=== PATIENT | female | born 1965 | race Two or more races ===

== ENCOUNTER 2021-01-13 09:17 | Outpatient (REF) | payer BC, SELFPAY ==
[2021-01-13 11:21] LABS: Cholesterol 295 mg/dL; HDL Cholesterol 53 mg/dL; LDL Cholesterol Calculated 217 mg/dl; Triglycerides 128 mg/dL
[2021-01-13 11:42] LABS: TSH reflex Free T4 5.03 uIU/mL (0.32-4.0)
== END 2021-01-13 09:18 | disposition home or self-care (01) ==
LOC: HO.HMGCLDS 09:17
PROVIDERS: PCP Internal Medicine; Visit Provider Internal Medicine
DX: E03.9 Hypothyroidism, unspecified (principal); E78.5 Hyperlipidemia, unspecified
CPT/HCPCS: 36415; 80061; 84439; 84443

== ENCOUNTER 2021-03-10 07:44 | Outpatient (REF) | payer BC, SELFPAY ==
[2021-03-10 11:27] LABS: Cholesterol 170 mg/dL; HDL Cholesterol 50 mg/dL; LDL Cholesterol Calculated 106 mg/dl; Triglycerides 74 mg/dL
[2021-03-10 11:48] LABS: TSH reflex Free T4 1.34 uIU/mL (0.32-4.0)
== END 2021-03-10 07:45 | disposition home or self-care (01) ==
LOC: HO.HMGCLDS 07:44
PROVIDERS: PCP Internal Medicine; Visit Provider Internal Medicine
DX: E03.9 Hypothyroidism, unspecified (principal); E78.5 Hyperlipidemia, unspecified
CPT/HCPCS: 36415; 80061; 84443

== ENCOUNTER 2021-10-13 07:45 | Outpatient (REF) | payer BC, SELFPAY ==
[2021-10-13 11:39] LABS: Alanine Aminotransferase 66 U/L (0-31); Albumin Level 4.3 g/dL (3.5-5.0); Alkaline Phosphatase 101 U/L (39-117); Anion Gap 13 (12-20); Aspartate Amino Transferase 37 U/L (5-31); Bilirubin Total 0.8 mg/dL (0.0-1.0); Blood Urea Nitrogen 15 mg/dL (9-16); Calcium 9.5 mg/dL (8.4-10.2); Carbon Dioxide 29 mmol/L (22-29); Chloride 106 mmol/L (96-108); Cholesterol 196 mg/dL; Estimated Glomerular Filt Rate > 60; Glucose Fasting 73 mg/dL (60-99); HDL Cholesterol 44 mg/dL; LDL Cholesterol Calculated 132 mg/dl; Potassium 4.6 mmol/L (3.3-5.1); Sodium 143 mmol/L (135-145); Total Protein 7.5 g/dL (6.5-8.0); Triglycerides 100 mg/dL
[2021-10-13 12:02] LABS: TSH reflex Free T4 26.89 uIU/mL (0.32-4.0)
[2021-10-13 12:52] LABS: Free T4 (Free Thyroxine) 0.86 ng/dL (0.71-1.85)
== END 2021-10-13 07:46 | disposition home or self-care (01) ==
LOC: HO.HMGCLDS 07:45
PROVIDERS: PCP Internal Medicine; Visit Provider Internal Medicine
DX: E03.9 Hypothyroidism, unspecified (principal); E78.5 Hyperlipidemia, unspecified; I10 Essential (primary) hypertension
CPT/HCPCS: 36415; 80053; 80061; 84439; 84443

== ENCOUNTER 2021-12-14 10:36 | Outpatient (REF) | payer BC, SELFPAY ==
[2021-12-14 14:15] LABS: TSH reflex Free T4 2.71 uIU/mL (0.32-4.0)
== END 2021-12-14 10:37 | disposition home or self-care (01) ==
LOC: HO.HMGCLDS 10:36
PROVIDERS: Visit Provider Internal Medicine
DX: E03.9 Hypothyroidism, unspecified (principal)
CPT/HCPCS: 36415; 84443

== ENCOUNTER 2022-03-02 08:29 | Outpatient (REF) | payer BC, SELFPAY ==
[2022-03-02 11:33] LABS: MANUAL DIFF FLAG NO
[2022-03-02 11:37] LABS: Basophils Absolute Auto 0.1 X10*3/uL (0.0-0.2); Basophils Percent Auto 1.4 % (0-2); Eosinophils Absolute Auto 0.2 X10*3/uL (0.0-0.4); Eosinophils Percent Auto 3.9 % (0-4); Hematocrit 45.5 % (37.0-47.0); Hemoglobin 14.9 g/dl (12.0-16.0); Imm Gran Abs Auto 0.01 X10*3/uL (0.00-0.03); Imm Gran Pct Auto 0.2 % (0.0-0.4); Lymphocytes Absolute Auto 2.4 X10*3/uL (1.2-4.9); Lymphocytes Percent Auto 49.2 % (20-40); Mean Corpuscular HGB Conc 32.7 g/dl (31.0-35.0); Mean Corpuscular Hemoglobin 28.2 pg (27.0-33.0); Mean Platelet Volume 11.7 fL (9.4-12.3); Monocytes Absolute Auto 0.5 X10*3/uL (0.1-1.2); Neutrophils Absolute Auto 1.7 x10*3/uL (2.0-8.3); Neutrophils Percent Auto 34.3 % (45-73); Platelet Count 202 X10*3/uL (160-400); Red Blood Count 5.29 X10*6/uL (4.20-5.50); Red Cell Distribution Width 11.9 % (11.0-16.0); White Blood Count 4.9 X10*3/uL (4.8-10.8)
[2022-03-02 12:37] LABS: Alanine Aminotransferase 24 U/L (0-31); Albumin Level 4.5 g/dL (3.5-5.0); Alkaline Phosphatase 70 U/L (39-117); Anion Gap 15 (12-20); Aspartate Amino Transferase 24 U/L (5-31); Bilirubin Total 0.8 mg/dL (0.0-1.0); Blood Urea Nitrogen 12 mg/dL (9-16); Calcium 9.4 mg/dL (8.4-10.2); Carbon Dioxide 27 mmol/L (22-29); Chloride 103 mmol/L (96-108); Cholesterol 332 mg/dL; Estimated Glomerular Filt Rate > 60; Glucose Fasting 78 mg/dL (60-99); HDL Cholesterol 50 mg/dL; LDL Cholesterol Calculated 260 mg/dl; Potassium 4.7 mmol/L (3.3-5.1); Sodium 140 mmol/L (135-145); Total Protein 7.4 g/dL (6.5-8.0); Triglycerides 112 mg/dL
[2022-03-02 12:39] LABS: TSH reflex Free T4 1.97 uIU/mL (0.32-4.0)
== END 2022-03-02 08:30 | disposition home or self-care (01) ==
LOC: HO.HMGCLDS 08:29
PROVIDERS: PCP Internal Medicine; Visit Provider Internal Medicine
DX: I10 Essential (primary) hypertension (principal); E78.5 Hyperlipidemia, unspecified; E03.9 Hypothyroidism, unspecified
CPT/HCPCS: 36415; 80053; 80061; 84443; 85025

== ENCOUNTER 2022-05-25 08:17 | Outpatient (REF) | payer BC, SELFPAY ==
[2022-05-25 11:24] LABS: Cholesterol 168 mg/dL; HDL Cholesterol 49 mg/dL; LDL Cholesterol Calculated 97 mg/dl; Triglycerides 113 mg/dL
== END 2022-05-25 08:18 | disposition home or self-care (01) ==
LOC: HO.HMGCLDS 08:17
PROVIDERS: PCP Internal Medicine; Visit Provider Internal Medicine
DX: E78.5 Hyperlipidemia, unspecified (principal)
CPT/HCPCS: 36415; 80061

== ENCOUNTER 2022-09-21 07:43 | Outpatient (REF) | payer BC, SELFPAY ==
[2022-09-21 11:12] LABS: MANUAL DIFF FLAG NO
[2022-09-21 11:24] LABS: Basophils Absolute Auto 0.1 X10*3/uL (0.0-0.2); Basophils Percent Auto 1.3 % (0-2); Eosinophils Absolute Auto 0.2 X10*3/uL (0.0-0.4); Eosinophils Percent Auto 3.8 % (0-4); Hematocrit 43.4 % (37.0-47.0); Imm Gran Abs Auto 0.01 X10*3/uL (0.00-0.03); Imm Gran Pct Auto 0.2 % (0.0-0.4); Lymphocytes Absolute Auto 2.2 X10*3/uL (1.2-4.9); Lymphocytes Percent Auto 38.8 % (20-40); Mean Corpuscular HGB Conc 32.3 g/dl (31.0-35.0); Mean Corpuscular Hemoglobin 27.9 pg (27.0-33.0); Mean Corpuscular Volume 86.6 fL (80.0-98.0); Monocytes Absolute Auto 0.6 X10*3/uL (0.1-1.2); Monocytes Percent Auto 11.2 % (2-11); Neutrophils Absolute Auto 2.5 x10*3/uL (2.0-8.3); Neutrophils Percent Auto 44.7 % (45-73); Platelet Count 174 X10*3/uL (160-400); Red Blood Count 5.01 X10*6/uL (4.20-5.50); Red Cell Distribution Width 11.7 % (11.0-16.0); White Blood Count 5.5 X10*3/uL (4.8-10.8)
[2022-09-21 11:53] LABS: Alanine Aminotransferase 32 U/L (0-31); Albumin Level 4.4 g/dL (3.5-5.0); Alkaline Phosphatase 63 U/L (39-117); Anion Gap 13 (12-20); Aspartate Amino Transferase 28 U/L (5-31); Bilirubin Total 1.2 mg/dL (0.0-1.0); Blood Urea Nitrogen 13 mg/dL (9-16); Calcium 9.6 mg/dL (8.4-10.2); Carbon Dioxide 28 mmol/L (22-29); Chloride 104 mmol/L (96-108); Cholesterol 148 mg/dL; Estimated Glomerular Filt Rate > 60; Glucose Fasting 85 mg/dL (60-99); HDL Cholesterol 45 mg/dL; LDL Cholesterol Calculated 80 mg/dl; Potassium 4.6 mmol/L (3.3-5.1); Sodium 140 mmol/L (135-145); Triglycerides 116 mg/dL
[2022-09-21 12:11] LABS: TSH reflex Free T4 1.67 uIU/mL (0.32-4.0); Vitamin D 25-OH Total 55.7 ng/mL (>30)
== END 2022-09-21 07:44 | disposition home or self-care (01) ==
LOC: HO.HMGCLDS 07:43
PROVIDERS: PCP Internal Medicine; Visit Provider Internal Medicine
DX: E03.9 Hypothyroidism, unspecified (principal); E78.5 Hyperlipidemia, unspecified; I10 Essential (primary) hypertension
CPT/HCPCS: 36415; 80053; 80061; 82306; 84443; 85025

== ENCOUNTER 2022-12-17 10:21 | Outpatient (AMB) | payer BC, SELFPAY ==
--- NOTE | 2022-12-17 12:33 | AM.OFFWIN_ITS ---
Intake Vital Signs 12/17/22 12:43 Height 5 ft 2 in BP 132/76 Blood Pressure Location Lt brachial Position Sitting Pulse 72 Pulse Source Pulse Oximeter Temp 97.2 F Temp Source Temporal Artery Scan Pulse Oximetry (%) 97 Oxygen Delivery Method Room Air Intake Visit Reasons: EP RT Eye concern [phone] Intake Note: Pt is here c/o possible stye in her right eye. Pt states her eye is in pain for the past three days. Patient Tobacco Use Status: Former Tobacco user Quit Date: 15 years ago Allergies atorvastatin Adverse Reaction (Intermediate, Verified 12/17/22 12:42) myalgia Do you need a note to return to daycare/school/sports/work: No HPI EP RT Eye concern [phone] HPI Details 57-year-old female presents to the office for a sick visit. Patient has a swelling in the right lower eyelid with that she would like it examined. Symptoms present for the past few days. Does not wear contact lenses. [facility] Medical History Annual physical exam Hordeolum externum (stye) HTN (hypertension) Hyperlipidemia Hypothyroidism Mammogram normal Normal colonoscopy Family History Father Asthma Mother Hypertension Stroke Social History Housing: House Patient Tobacco Use Status: Former Tobacco user Quit Date: 15 years ago e-Cigarette/Vaping Use: Never Used Current occupational status: employed Cognitive needs: No Hearing needs: No Vision needs: No Physical Exam Vital Signs: Last Vital Signs Temp 97.2 F 12/17/22 12:43 Pulse 72 12/17/22 12:43 BP 132/76 12/17/22 12:43 Pulse Ox 97 12/17/22 12:43 Oxygen Delivery Method Room Air 12/17/22 12:43 Eyes Other: Right eye: Lower eyelid: Swelling with congestion over the tarsal conjunctiva. Assessment & Plan Assessment & Plan (1) Hordeolum externum (stye): Code(s): H00.019 - Hordeolum externum unspecified eye, unspecified eyelid Plan: Erythromycin ophthalmic ointment. Warm compress. If symptoms not better to follow-up here. Coding Level of Care Code Est Pt Level 3 (19851) Diagnoses Hordeolum externum (stye) H00.019
[2022-12-17 12:43] VITALS: BP 132/76; PULSE 72; TEMP 36.2; O2SAT 97
== END 2022-12-17 13:18 | disposition home or self-care (01) ==
PROVIDERS: PCP Internal Medicine; Visit Provider Internal Medicine
DX: H00.019 Hordeolum externum unspecified eye, unspecified eyelid (principal)
CPT/HCPCS: 99213

== ENCOUNTER 2022-12-21 07:36 | Outpatient (REF) | payer BC, SELFPAY ==
[2022-12-21 11:50] LABS: Alanine Aminotransferase 31 U/L (0-31); Albumin Level 4.3 g/dL (3.5-5.0); Alkaline Phosphatase 66 U/L (39-117); Anion Gap 14 (12-20); Aspartate Amino Transferase 29 U/L (5-31); Bilirubin Total 0.7 mg/dL (0.0-1.0); Blood Urea Nitrogen 12 mg/dL (9-16); Calcium 9.2 mg/dL (8.4-10.2); Carbon Dioxide 25 mmol/L (22-29); Chloride 108 mmol/L (96-108); Cholesterol 155 mg/dL; Estimated Glomerular Filt Rate > 60; Glucose Fasting 87 mg/dL (60-99); HDL Cholesterol 50 mg/dL; LDL Cholesterol Calculated 86 mg/dl; Potassium 4.6 mmol/L (3.3-5.1); Sodium 142 mmol/L (135-145); Total Protein 7.4 g/dL (6.5-8.0); Triglycerides 99 mg/dL
== END 2022-12-21 07:37 | disposition home or self-care (01) ==
LOC: HO.HMGCLDS 07:36
PROVIDERS: PCP Internal Medicine; Visit Provider Internal Medicine
DX: E78.5 Hyperlipidemia, unspecified (principal)
CPT/HCPCS: 36415; 80053; 80061

== ENCOUNTER 2023-03-29 07:43 | Outpatient (REF) | payer BC, SELFPAY ==
[2023-03-29 12:39] LABS: Alanine Aminotransferase 28 U/L (0-31); Albumin Level 4.3 g/dL (3.5-5.0); Alkaline Phosphatase 59 U/L (39-117); Anion Gap 12 (12-20); Aspartate Amino Transferase 29 U/L (5-31); Bilirubin Total 0.6 mg/dL (0.0-1.0); Blood Urea Nitrogen 12 mg/dL (9-16); Calcium 9.5 mg/dL (8.4-10.2); Carbon Dioxide 28 mmol/L (22-29); Chloride 104 mmol/L (96-108); Cholesterol 162 mg/dL (<200); Estimated Glomerular Filt Rate > 60; Glucose Fasting 84 mg/dL (60-99); HDL Cholesterol 47 mg/dL (>40); LDL Cholesterol Calculated 99 mg/dL (<100); Potassium 4.5 mmol/L (3.3-5.1); Sodium 139 mmol/L (135-145); Total Protein 7.3 g/dL (6.5-8.0); Triglycerides 83 mg/dL (<150)
== END 2023-03-29 07:44 | disposition home or self-care (01) ==
LOC: HO.HMGCLDS 07:43
PROVIDERS: PCP Internal Medicine; Visit Provider Internal Medicine
DX: E78.5 Hyperlipidemia, unspecified (principal); E03.9 Hypothyroidism, unspecified; I10 Essential (primary) hypertension
CPT/HCPCS: 36415; 80053; 80061; 84443

== ENCOUNTER 2023-04-01 13:38 | Outpatient (AMB) | payer BC, SELFPAY ==
--- NOTE | 2023-04-01 13:41 | MHC.PC.OV ---
Vital Signs 04/01/23 13:43 Height 5 ft 2 in Weight 133 lb BMI 24.3 BP 130/80 Blood Pressure Location Rt brachial Position Sitting Pulse 94 Pulse Source Pulse Oximeter Pulse Oximetry (%) 99 Oxygen Delivery Method Room Air Intake Visit Reasons: PT Needs 2 pm PE Allergies atorvastatin Adverse Reaction (Intermediate, Verified 04/01/23 13:43) myalgia Medication List - Last Reconciled 04/01/23 by Hawa Hu MD erythromycin 0.5 inches ophthalmic (eye) TID levothyroxine 75 mcg PO DAILY lorazepam 0.5 mg PO DAILY PRN metoprolol succinate ER 25 mg PO DAILY rosuvastatin 10 mg PO DAILY valacyclovir (Valtrex) 2,000 mg (2 x 1 gram) PO BID Tobacco use date assessed: 05/29/22 Dental Screening Dental Screen Date: 04/01/23 Did you have a dental visit in the last 12 months?: Yes Did you have a dental problem in the last 6 months where you did not have access to dental care?: No Was dental information given to patient?: Patient has dentist HPI PT Needs 2 pm PE HPI Details Pt presents for PE. Pt c/o chronic rhinitis and sinus pressure on and off despite taking Flonase and Dana for years. [facility] Medical History Hordeolum externum (stye) HTN (hypertension) Normal colonoscopy Annual physical exam Hyperlipidemia Mammogram normal Hypothyroidism Family History Father Asthma Mother Hypertension Stroke Social History Housing: House Patient Tobacco Use Status: Former Tobacco user Quit Date: 15 years ago e-Cigarette/Vaping Use: Never Used Current occupational status: employed Cognitive needs: No Hearing needs: No Vision needs: No Questionnaire Thrive Questionnaire Date Thrive assessed: 05/29/22 AUDIT C Alcohol Use Questionnaire (AUDIT-C) 1. How often do you have a drink containing alcohol?: Monthly or less 2. How many drinks containing alcohol do you have on a typical day when you are drinking?: 1 or 2 3. How often do you have six or more drinks on one occasion?: Never Total Score: 1 Score Reviewed/Action Taken: No YIFAN-7 AMB Questionnaire YIFAN-7 Date YIFAN - 7 assessed: 05/29/22 Source: Developed by Drs. Boby Wang, Mecca Brown, Shaan Lopez and colleagues, with an educational carlos from [employer]. Review of Systems Const All systems reviewed & are unremarkable except as noted in HPI and below Reports no additional complaints Eyes Reports no additional complaints Card Reports no additional complaints Resp Reports no additional complaints GI Reports no additional complaints Reports no additional complaints Physical exam (Primary Care) Vital Signs: Last Vital Signs Pulse 94 04/01/23 13:43 BP 130/80 04/01/23 13:43 Pulse Ox 99 04/01/23 13:43 Oxygen Delivery Method Room Air 04/01/23 13:43 BMI result Body Mass Index 24.3 Tobacco/Smoking Status: Tobacco use Status Tobacco use date assessed 05/29/22 04/01/23 13:45 Patient Tobacco Use Status Former Tobacco user 04/01/23 13:45 e-Cigarette/Vaping Use Never Used 04/01/23 13:45 Thrive Assessment: Date of Thrive Assessment Date Thrive assessed 05/29/22 04/01/23 13:45 Const General: no acute distress HENMT Head: Yes normal to inspection Ears: hearing grossly normal bilaterally General nose exam: Abnormal mucous membranes and turbinates present erythematous and Nasal discharge present clear Face and sinus: Yes normal facial exam and No sinus tenderness Mouth: Normal oral and palatal mucosa present Throat: Yes postnasal drainage Eyes General: appearance normal, both eyes and all related structures Neck Neck: Yes no lymphadenopathy and Yes supple Resp Effort & Inspection: normal respiratory effort Auscultation: clear to auscultation bilaterally Cardio Rhythm: regular rhythm Heart sounds: S1 normal heart sound present and S2 normal heart sound present GI Inspection: Yes normal to inspection Palpation (GI): Soft to palpation Percussion: Yes normal to percussion Auscultation: normal bowel sounds Assessment and Plan Assessment & Plan (1) Hypothyroidism: Code(s): E03.9 - Hypothyroidism, unspecified Plan: cont Levothyroxine (2) Allergic rhinitis: Code(s): J30.9 - Allergic rhinitis, unspecified Plan: cont Dana and Flonase, 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 PE in 1 year Orders: Orders MM screening mammo BI Today Z12.31 - Encounter for screening mammogram for malignant neoplasm of breast TSH reflex Free T4 6 Months E03.9 - Hypothyroidism, unspecified Comprehensive [place]. Panel Fast 365 Days E03.9 - Hypothyroidism, unspecified, E78.5 - Hyperlipidemia, unspecified, Z00.00 - Encounter for general adult medical examination without abnormal findings TSH reflex Free T4 365 Days E03.9 - Hypothyroidism, unspecified, E78.5 - Hyperlipidemia, unspecified, Z00.00 - Encounter for general adult medical examination without abnormal findings Vitamin D 25-OH Total 365 Days E03.9 - Hypothyroidism, unspecified, E78.5 - Hyperlipidemia, unspecified, Z00.00 - Encounter for general adult medical examination without abnormal findings Lipid Panel 365 Days E03.9 - Hypothyroidism, unspecified, E78.5 - Hyperlipidemia, unspecified, Z00.00 - Encounter for general adult medical examination without abnormal findings Complete Blood Count Auto Diff 365 Days E03.9 - Hypothyroidism, unspecified, E78.5 - Hyperlipidemia, unspecified, Z00.00 - Encounter for general adult medical examination without abnormal findings Referrals Allergy & Immunology Referral J30.9 - Allergic rhinitis, unspecified Coding Level of Care Code Est Pt Prev Care 40-64y(89104) Diagnoses Hypothyroidism E03.9 Allergic rhinitis J30.9 Hyperlipidemia E78.5 Annual physical exam Z00.00
[2023-04-01 13:43] VITALS: BP 130/80; PULSE 94; O2SAT 99; BMI 24.3
== END 2023-04-01 14:37 | disposition home or self-care (01) ==
PROVIDERS: PCP Internal Medicine; Visit Provider Internal Medicine
DX: E03.9 Hypothyroidism, unspecified (principal); J30.9 Allergic rhinitis, unspecified; E78.5 Hyperlipidemia, unspecified; Z00.00 Encounter for general adult medical examination without abnormal findings
CPT/HCPCS: 99396

== ENCOUNTER 2023-10-03 14:48 | Outpatient (REF) | payer BC, SELFPAY ==
[2023-10-03 16:43] LABS: TSH reflex Free T4 1.29 uIU/mL (0.32-4.0)
== END 2023-10-03 14:49 | disposition home or self-care (01) ==
LOC: HO.HMGCLDS 14:48
PROVIDERS: PCP Internal Medicine; Visit Provider Internal Medicine
DX: E03.9 Hypothyroidism, unspecified (principal)
CPT/HCPCS: 36415; 84443

== ENCOUNTER 2024-02-12 13:04 | Outpatient (AMB) | payer BC, SELFPAY ==
[2024-02-12 13:30] VITALS: BP 138/88; PULSE 79; O2SAT 99; BMI 24.3
--- NOTE | 2024-02-12 13:30 | A.OFFPC_ITS ---
Vital Signs 02/12/24 13:30 Height 5 ft 2 in Weight 133 lb BMI 24.3 BP 138/88 Blood Pressure Location Rt brachial Position Sitting Pulse 79 Pulse Source Pulse Oximeter Pulse Oximetry (%) 99 Oxygen Delivery Method Room Air Intake Visit Reasons: ER follow up Intake Note: Pt is here today for ER follow up visit. Allergies atorvastatin Adverse Reaction (Intermediate, Verified 02/12/24 13:30) myalgia Tobacco use date assessed: 02/12/24 Dental Screening Dental Screen Date: 02/12/24 Did you have a dental visit in the last 12 months?: Yes Did you have a dental problem in the last 6 months where you did not have access to dental care?: No Was dental information given to patient?: Patient has dentist HPI ER follow up HPI Details Patient presents for the follow-up of ER visit for chest pain and elevated blood pressure. Patient has been under stress going to [place] tomorrow to visit her daughter who had a baby last month. Patient developed sensation of chest pressure and high blood pressure at home went to the ER and had a negative cardiac workup. COUNT INCLUDES THE [facility] Medical History Hordeolum externum (stye) HTN (hypertension) Normal colonoscopy Annual physical exam Hyperlipidemia Mammogram normal Hypothyroidism Family History Father Asthma Mother Hypertension Stroke Social History Housing: House Patient Tobacco Use Status: Former Tobacco user e-Cigarette/Vaping Use: Never Used service: No Current occupational status: employed Cognitive needs: No Hearing needs: No Vision needs: No Questionnaire PHQ-9 Over the last 2 weeks, how often have you been bothered by any of the following problems? 1. Little interest or pleasure in doing things: not at all 2. Feeling down, depressed, or hopeless: not at all 3. Trouble falling or staying asleep, or sleeping too much: not at all 4. Feeling tired or having little energy: not at all 5. Poor appetite or overeating: not at all 6. Feeling bad about yourself - or that you are a failure or have let yourself or your family down: not at all 7. Trouble concentrating on things, such as reading the newspaper or watching television: not at all 8. Moving or speaking so slowly that other people could have noticed. Or the opposite - being so fidgety or restless that you have been moving around a lot more than usual: not at all 9. Thoughts that you would be better off or of hurting yourself in some way: not at all Total score: 0 Depression Screening Interpretation: Negative Depression Screening Done: Yes 82023 - PHQ-9 Billing: Yes Source: Developed by Drs. Boby Wang, Mecca Brown, Shaan Lopez and colleagues, with an educational carlos from [employer]. Thrive Questionnaire Date Thrive assessed: 02/12/24 I am a: Patient What is your living situation today?: I have a steady place to live Within the past 12 months, did the food you bought not last and you didn't have the money to get more?: Never true Within the past 12 months, did you worry whether your food would run out before you got money to buy more?: Never true Do you have trouble paying for medicines?: No Do you have trouble getting transportation to medical appointments?: No Do you have trouble paying your heating and electricity bill?: No Do you have trouble taking care of your child, family member or friend?: No Do you have trouble with day-to-day activities such as bathing, preparing meals, shopping, managing finances, etc.?: No Are you currently unemployed and looking for a job?: No Are you interested in more education?: No Please select the resources that you would like help with: None THRIVE Score: 0 AUDIT C Alcohol Use Questionnaire (AUDIT-C) 1. How often do you have a drink containing alcohol?: Never 3. How often do you have six or more drinks on one occasion?: Never Total Score: 0 YIFAN-7 AMB Questionnaire YIFAN-7 Date YIFAN - 7 assessed: 02/12/24 Feeling nervous, anxious, or on edge: 0 = Not at all Not being able to stop or control worryin = Not at all Worrying too much about different things: 0 = Not at all Trouble relaxin = Not at all Being so restless that it is hard to sit still: 0 = Not at all Becoming easily annoyed or irritable: 0 = Not at all Feeling afraid as if something awful might happen: 0 = Not at all Total YIFAN-7 score (0-4 normal; 5-9 mild; 10-14 moderate; 15-21 severe): 0 Source: Developed by Drs. Boby Wang, Mecca Brown, Shaan Lopez and colleagues, with an educational carlos from [employer]. YIFAN-7 Assessment Billing YIFAN-7 Assessment Tool: YIFAN-7 Assessment 38344 Review of Systems Const All systems reviewed & are unremarkable except as noted in HPI and below Eyes Reports no additional complaints ENT Reports no additional complaints Card Reports no additional complaints Resp Reports no additional complaints GI Reports no additional complaints Reports no additional complaints Physical exam (Primary Care) Vital Signs: Last Vital Signs Pulse 79 02/12/24 13:30 Pulse Ox 99 02/12/24 13:30 Oxygen Delivery Method Room Air 02/12/24 13:30 BMI result Body Mass Index 24.3 Tobacco/Smoking Status: Tobacco use Status Tobacco use date assessed 02/12/24 02/12/24 13:32 Patient Tobacco Use Status Former Tobacco user 02/12/24 13:32 e-Cigarette/Vaping Use Never Used 02/12/24 13:32 PHQ-9: PHQ-9 Score PHQ-9: Total score 0 02/12/24 14:22 Depression Screening Interpretation: Negative Thrive Assessment: Date of Thrive Assessment Date Thrive assessed 02/12/24 02/12/24 13:32 Const General: no acute distress HENMT Head: Yes normal to inspection Face and sinus: Yes normal facial exam Eyes General: appearance normal, both eyes and all related structures Resp Effort & Inspection: normal respiratory effort Auscultation: clear to auscultation bilaterally Cardio Rhythm: regular rhythm Heart sounds: S1 normal heart sound present and S2 normal heart sound present Assessment and Plan Assessment & Plan (1) HTN (hypertension): Code(s): I10 - Essential (primary) hypertension Plan: Increase metoprolol to 50 mg a day and stress management discussed with the patient. Lorazepam 0.5 mg to take as needed # 10 prescribed. Patient will follow-up in 1 month Orders: Orders UA w Microscopic Today I10 - Essential (primary) hypertension Medications: New metoprolol succinate ER 50 mg PO DAILY 60 tabs 0RF Refilled lorazepam 0.5 mg PO DAILY PRN 10 tabs 0RF anxiety Coding Level of Care Code Est Pt Level 3 (83635) Diagnoses HTN (hypertension) I10 Additional Codes YIFAN-7 Assessment Billing - YIFAN-7 Assessment Tool: YIFAN-7 Assessment 22545 ([id number])
== END 2024-02-12 14:32 | disposition home or self-care (01) ==
PROVIDERS: PCP Internal Medicine; Visit Provider Internal Medicine
DX: I10 Essential (primary) hypertension (principal)

== ENCOUNTER → 2024-02-12 13:04 | Outpatient (BNVA) | payer BC, SELFPAY | PROVIDERS: PCP Internal Medicine; Visit Provider Internal Medicine | DX: I10 Essential (primary) hypertension (principal); Z79.899 Other long term (current) drug therapy | CPT/HCPCS: 96127 ==

== ENCOUNTER 2024-04-03 07:39 | Outpatient (REF) | payer BC, SELFPAY ==
[2024-04-03 11:12] LABS: MANUAL DIFF FLAG NO
[2024-04-03 11:31] LABS: Basophils Absolute Auto 0.1 X10*3/uL (0.0-0.2); Basophils Percent Auto 1.7 % (0-2); Eosinophils Absolute Auto 0.2 X10*3/uL (0.0-0.4); Eosinophils Percent Auto 3.7 % (0-4); Hematocrit 44.3 % (37.0-47.0); Hemoglobin 14.3 g/dl (12.0-16.0); Imm Gran Abs Auto 0.01 X10*3/uL (0.00-0.03); Imm Gran Pct Auto 0.2 % (0.0-0.4); Lymphocytes Absolute Auto 2.2 X10*3/uL (1.2-4.9); Lymphocytes Percent Auto 41.7 % (20-40); Mean Corpuscular HGB Conc 32.3 g/dl (31.0-35.0); Mean Corpuscular Hemoglobin 27.9 pg (27.0-33.0); Mean Corpuscular Volume 86.4 fL (80.0-98.0); Mean Platelet Volume 12.2 fL (9.4-12.3); Monocytes Absolute Auto 0.6 X10*3/uL (0.1-1.2); Monocytes Percent Auto 10.8 % (2-11); Neutrophils Absolute Auto 2.2 x10*3/uL (2.0-8.3); Neutrophils Percent Auto 41.9 % (45-73); Platelet Count 166 X10*3/uL (160-400); Red Blood Count 5.13 X10*6/uL (4.20-5.50); Red Cell Distribution Width 11.9 % (11.0-16.0); White Blood Count 5.4 X10*3/uL (4.8-10.8)
[2024-04-03 11:47] LABS: Alanine Aminotransferase 49 U/L (0-31); Albumin Level 4.5 g/dL (3.5-5.0); Alkaline Phosphatase 58 U/L (39-117); Anion Gap 12 (12-20); Aspartate Amino Transferase 45 U/L (5-31); Bilirubin Total 1.1 mg/dL (0.0-1.0); Blood Urea Nitrogen 22 mg/dL (9-16); Calcium 9.9 mg/dL (8.4-10.2); Carbon Dioxide 29 mmol/L (22-29); Chloride 104 mmol/L (96-108); Cholesterol 171 mg/dL (<200); Estimated Glomerular Filt Rate > 60; Glucose Fasting 81 mg/dL (60-99); HDL Cholesterol 54 mg/dL (>40); LDL Cholesterol Calculated 99 mg/dL (<100); Potassium 4.3 mmol/L (3.3-5.1); Sodium 141 mmol/L (135-145); Total Protein 7.5 g/dL (6.5-8.0); Triglycerides 92 mg/dL (<150)
[2024-04-03 12:20] LABS: TSH reflex Free T4 1.94 uIU/mL (0.32-4.0); Vitamin D 25-OH Total 77.8 ng/mL (>30)
== END 2024-04-03 07:40 | disposition home or self-care (01) ==
LOC: HO.HMGCLDS 07:39
PROVIDERS: PCP Internal Medicine; Visit Provider Internal Medicine
DX: Z00.00 Encounter for general adult medical examination without abnormal findings (principal); E78.5 Hyperlipidemia, unspecified; E03.9 Hypothyroidism, unspecified
CPT/HCPCS: 36415; 80053; 80061; 82306; 84443; 85025

== ENCOUNTER 2024-04-07 12:21 | Outpatient (AMB) | payer BC, SELFPAY ==
--- NOTE | 2024-04-07 12:46 | A.OFFPC_ITS ---
Vital Signs 04/07/24 12:47 Height 5 ft 2 in Weight 133 lb BMI 24.3 BP 122/74 Blood Pressure Location Lt brachial Position Sitting Pulse 70 Pulse Source Pulse Oximeter Pulse Oximetry (%) 97 Oxygen Delivery Method Room Air Intake Visit Reasons: PE Intake Note: Pt is here today for PE. Allergies atorvastatin Adverse Reaction (Intermediate, Verified 04/07/24 12:48) myalgia Medication List - Last Reconciled 04/07/24 by Hawa Hu MD famotidine 20 mg PO DAILY levothyroxine 75 mcg PO DAILY lorazepam 0.5 mg PO DAILY PRN metoprolol succinate ER 50 mg PO DAILY rosuvastatin 10 mg PO DAILY valacyclovir (Valtrex) 2,000 mg (2 x 1 gram) PO BID Tobacco use date assessed: 02/12/24 Dental Screening Dental Screen Date: 02/12/24 HPI PE HPI Details Pt presents for PE. [facility] Medical History Hordeolum externum (stye) HTN (hypertension) Normal colonoscopy Annual physical exam Hyperlipidemia Mammogram normal Hypothyroidism Surgical History No pertinent past surgical history Family History Father Asthma Mother Hypertension Stroke Social History Housing: House Patient Tobacco Use Status: Former Tobacco user e-Cigarette/Vaping Use: Never Used service: No Current occupational status: employed Cognitive needs: No Hearing needs: No Vision needs: No Questionnaire Thrive Questionnaire Date Thrive assessed: 04/07/24 I am a: Patient What is your living situation today?: I choose not to answer this question Within the past 12 months, did the food you bought not last and you didn't have the money to get more?: I choose not to answer this question Within the past 12 months, did you worry whether your food would run out before you got money to buy more?: I choose not to answer this question Do you have trouble paying for medicines?: No Do you have trouble getting transportation to medical appointments?: No Do you have trouble paying your heating and electricity bill?: No Do you have trouble taking care of your child, family member or friend?: No Do you have trouble with day-to-day activities such as bathing, preparing meals, shopping, managing finances, etc.?: No Are you currently unemployed and looking for a job?: No Are you interested in more education?: I choose not to answer this question Please select the resources that you would like help with: None Currently or been in a relationship where the following occur: I choose not to answer THRIVE Score: 0 AUDIT C Alcohol Use Questionnaire (AUDIT-C) 1. How often do you have a drink containing alcohol?: 2-4 times a month 2. How many drinks containing alcohol do you have on a typical day when you are drinking?: 1 or 2 3. How often do you have six or more drinks on one occasion?: Never Total Score: 2 YIFAN-7 AMB Questionnaire YIFAN-7 Date YIFAN - 7 assessed: 02/12/24 Source: Developed by Drs. Boby Wang, Mecca Brown, Shaan Lopez and colleagues, with an educational carlos from [employer]. Review of Systems Const All systems reviewed & are unremarkable except as noted in HPI and below Eyes Reports no additional complaints ENT Reports no additional complaints Card Reports no additional complaints Resp Reports no additional complaints GI Reports no additional complaints Reports no additional complaints Physical exam (Primary Care) Vital Signs: Last Vital Signs Pulse 70 04/07/24 12:47 BP 122/74 04/07/24 12:47 Pulse Ox 97 04/07/24 12:47 Oxygen Delivery Method Room Air 04/07/24 12:47 BMI result Body Mass Index 24.3 Tobacco/Smoking Status: Tobacco use Status Tobacco use date assessed 02/12/24 04/07/24 12:48 Patient Tobacco Use Status Former Tobacco user 04/07/24 12:48 e-Cigarette/Vaping Use Never Used 04/07/24 12:48 Thrive Assessment: Date of Thrive Assessment Date Thrive assessed 04/07/24 04/07/24 12:48 Currently or been in a relationship where the following occur: I choose not to answer Const General: no acute distress HENMT Mouth: Normal oral and palatal mucosa present Eyes General: appearance normal, both eyes and all related structures Resp Effort & Inspection: normal respiratory effort Auscultation: clear to auscultation bilaterally Cardio Rhythm: regular rhythm Heart sounds: S1 normal heart sound present and S2 normal heart sound present GI Inspection: Yes normal to inspection Palpation (GI): Soft to palpation Percussion: Yes normal to percussion Auscultation: normal bowel sounds Coding Level of Care Code Est Pt Prev Care 40-64y(13026) Diagnoses HTN (hypertension) I10 Hyperlipidemia E78.5 Hypothyroidism E03.9 Annual physical exam Z00.00 Assessment & Plan Assessment & Plan (1) HTN (hypertension): Code(s): I10 - Essential (primary) hypertension Category: Medical Plan: CONT Metoprolol (2) Hyperlipidemia: Comment: Intolerant to atorvastatin myalgia Code(s): E78.5 - Hyperlipidemia, unspecified Category: Medical Plan: cont statin (3) Hypothyroidism: Code(s): E03.9 - Hypothyroidism, unspecified Category: Medical Plan: cont Levothyroxine (4) Annual physical exam: Code(s): Z00.00 - Encounter for general adult medical examination without abnormal findings Category: Medical Plan: Well-balanced diet regular exercise discussed with the patient she is up-to-date with mammogram Pap smear by environmental scientists and colonoscopy follow-up in 6 months with a fasting labs before Orders: Orders Comprehensive [place]. Panel Fast 6 Months E03.9 - Hypothyroidism, unspecified, E78.5 - Hyperlipidemia, unspecified, I10 - Essential (primary) hypertension Lipid Panel 6 Months E03.9 - Hypothyroidism, unspecified, E78.5 - Hyperlipidemia, unspecified, I10 - Essential (primary) hypertension Medications: Refilled metoprolol succinate ER 50 mg PO DAILY 90 tabs 3RF rosuvastatin 10 mg PO DAILY 90 tabs 3RF levothyroxine 75 mcg PO DAILY 90 tabs 3RF Discontinued metoprolol succinate ER Discontinued Reason: Doctor's Order 25 mg PO DAILY 90 tabs 3RF
[2024-04-07 12:47] VITALS: BP 122/74; PULSE 70; O2SAT 97; BMI 24.3
== END 2024-04-07 13:18 | disposition home or self-care (01) ==
PROVIDERS: PCP Internal Medicine; Visit Provider Internal Medicine
DX: I10 Essential (primary) hypertension (principal); E78.5 Hyperlipidemia, unspecified; E03.9 Hypothyroidism, unspecified; Z00.00 Encounter for general adult medical examination without abnormal findings

== ENCOUNTER → 2024-04-07 12:21 | Outpatient (BNVA) | payer BC, SELFPAY | PROVIDERS: PCP Internal Medicine; Visit Provider Internal Medicine ==

== ENCOUNTER 2024-10-02 08:03 | Outpatient (REF) | payer BC, SELFPAY ==
[2024-10-02 12:00] LABS: Alanine Aminotransferase 44 U/L (0-31); Albumin Level 4.3 g/dL (3.5-5.0); Alkaline Phosphatase 57 U/L (39-117); Anion Gap 13 (12-20); Aspartate Amino Transferase 37 U/L (5-31); Bilirubin Total 0.9 mg/dL (0.0-1.0); Blood Urea Nitrogen 15 mg/dL (9-16); Calcium 9.5 mg/dL (8.4-10.2); Carbon Dioxide 27 mmol/L (22-29); Chloride 109 mmol/L (96-108); Cholesterol 173 mg/dL (<200); Estimated Glomerular Filt Rate > 60; Glucose Fasting 88 mg/dL (60-99); HDL Cholesterol 56 mg/dL (>40); LDL Cholesterol Calculated 101 mg/dL (<100); Sodium 144 mmol/L (135-145); Total Protein 7.4 g/dL (6.5-8.0); Triglycerides 84 mg/dL (<150)
== END 2024-10-02 08:04 | disposition home or self-care (01) ==
LOC: HO.HMGCLDS 08:03
PROVIDERS: PCP Internal Medicine; Visit Provider Internal Medicine
DX: E78.5 Hyperlipidemia, unspecified (principal); E03.9 Hypothyroidism, unspecified; I10 Essential (primary) hypertension
CPT/HCPCS: 36415; 80053; 80061

== ENCOUNTER 2024-10-07 13:25 | Outpatient (AMB) | payer BC, SELFPAY ==
[2024-10-07 13:27] VITALS: BP 124/78; PULSE 82; RESP 18; TEMP 36.7; O2SAT 98; BMI 24.1
--- NOTE | 2024-10-07 13:27 | A.OFFPC_ITS ---
Vital Signs 10/07/24 13:27 Height 5 ft 2 in Weight 132 lb BMI 24.1 BP 124/78 Blood Pressure Location Lt brachial Position Sitting Respiration 18 Pulse 82 Pulse Source Pulse Oximeter Temp 98.1 F Temp Source Oral Pulse Oximetry (%) 98 Oxygen Delivery Method Room Air Intake Visit Reasons: 6 months follow up Intake Note: Pt is here today for 6 months follow up visit Allergies atorvastatin Adverse Reaction (Intermediate, Verified 10/07/24 13:28) myalgia Medication List - Last Reconciled 10/07/24 by Hawa Hu MD levothyroxine 75 mcg PO DAILY lorazepam 0.5 mg PO DAILY PRN metoprolol succinate ER 50 mg PO DAILY rosuvastatin 10 mg PO DAILY valacyclovir (Valtrex) 2,000 mg (2 x 1 gram) PO BID Tobacco use date assessed: 10/07/24 Dental Screening Dental Screen Date: 10/07/24 Did you have a dental visit in the last 12 months?: Yes Did you have a dental problem in the last 6 months where you did not have access to dental care?: No Was dental information given to patient?: Patient has dentist HPI 6 months follow up HPI Details Pt presents for f/u HTN, hyperlipid, hypothyroid, stable on meds. Patient is going to [place] in the summer to visit her daughter and 1-year-old grandson [facility] Medical History (Updated 10/07/24 @ 14:31 by Hawa Hu MD) Normal pelvic exam Hordeolum externum (stye) HTN (hypertension) Normal colonoscopy Annual physical exam Hyperlipidemia Mammogram normal Hypothyroidism Surgical History No pertinent past surgical history Family History Father Asthma Mother Hypertension Stroke Social History Housing: House Patient Tobacco Use Status: Former Tobacco user e-Cigarette/Vaping Use: Never Used service: No Current occupational status: employed Cognitive needs: No Hearing needs: No Vision needs: No Questionnaire PHQ-9 Over the last 2 weeks, how often have you been bothered by any of the following problems? 1. Little interest or pleasure in doing things: not at all 2. Feeling down, depressed, or hopeless: not at all 3. Trouble falling or staying asleep, or sleeping too much: not at all 4. Feeling tired or having little energy: not at all 5. Poor appetite or overeating: not at all 6. Feeling bad about yourself - or that you are a failure or have let yourself or your family down: not at all 7. Trouble concentrating on things, such as reading the newspaper or watching television: not at all 8. Moving or speaking so slowly that other people could have noticed. Or the opposite - being so fidgety or restless that you have been moving around a lot more than usual: not at all 9. Thoughts that you would be better off or of hurting yourself in some way: not at all Total score: 0 Depression Screening Interpretation: Negative Depression Screening Done: Yes 85257 - PHQ-9 Billing: Yes Source: Developed by Drs. Boby Wang, Mecca Brown, Shaan Lopez and colleagues, with an educational carlos from [employer]. Thrive Questionnaire Date Thrive assessed: 10/07/24 I am a: Patient What is your living situation today?: I have a steady place to live Within the past 12 months, did the food you bought not last and you didn't have the money to get more?: Never true Within the past 12 months, did you worry whether your food would run out before you got money to buy more?: Never true Do you have trouble paying for medicines?: No Do you have trouble getting transportation to medical appointments?: No Do you have trouble paying your heating and electricity bill?: No Do you have trouble taking care of your child, family member or friend?: No Do you have trouble with day-to-day activities such as bathing, preparing meals, shopping, managing finances, etc.?: No Are you currently unemployed and looking for a job?: No Are you interested in more education?: No Please select the resources that you would like help with: None THRIVE Score: 0 AUDIT C Alcohol Use Questionnaire (AUDIT-C) 1. How often do you have a drink containing alcohol?: Never Total Score: 0 YIFAN-7 AMB Questionnaire YIFAN-7 Date YIFAN - 7 assessed: 05/22/25 Feeling nervous, anxious, or on edge: 0 = Not at all Not being able to stop or control worryin = Not at all Worrying too much about different things: 0 = Not at all Trouble relaxin = Not at all Being so restless that it is hard to sit still: 0 = Not at all Becoming easily annoyed or irritable: 0 = Not at all Feeling afraid as if something awful might happen: 0 = Not at all Total YIFAN-7 score (0-4 normal; 5-9 mild; 10-14 moderate; 15-21 severe): 0 Source: Developed by Drs. Boby Wang, Mecca Brown, Shaan Lopez and colleagues, with an educational carlos from [employer]. YIFAN-7 Assessment Billing YIFAN-7 Assessment Tool: YIFAN-7 Assessment 47546 Review of Systems Const All systems reviewed & are unremarkable except as noted in HPI and below Eyes Reports no additional complaints ENT Reports no additional complaints Card Reports no additional complaints Resp Reports no additional complaints GI Reports no additional complaints Reports no additional complaints Physical exam (Primary Care) Vital Signs: Last Vital Signs Temp 98.1 F 10/07/24 13:27 Pulse 82 10/07/24 13:27 Resp 18 10/07/24 13:27 BP 124/78 10/07/24 13:27 Pulse Ox 98 10/07/24 13:27 Oxygen Delivery Method Room Air 10/07/24 13:27 BMI result Body Mass Index 24.1 Tobacco/Smoking Status: Tobacco use Status Tobacco use date assessed 10/07/24 10/07/24 13:29 Patient Tobacco Use Status Former Tobacco user 10/07/24 13:29 e-Cigarette/Vaping Use Never Used 10/07/24 13:29 PHQ-9: PHQ-9 Score PHQ-9: Total score 0 10/07/24 13:49 Depression Screening Interpretation: Negative Thrive Assessment: Date of Thrive Assessment Date Thrive assessed 10/07/24 10/07/24 13:29 Const General: no acute distress HENMT Head: Yes normal to inspection Mouth: Normal oral and palatal mucosa present Eyes General: appearance normal, both eyes and all related structures Resp Effort & Inspection: normal respiratory effort Auscultation: clear to auscultation bilaterally Cardio Rhythm: regular rhythm Heart sounds: S1 normal heart sound present and S2 normal heart sound present GI Inspection: Yes normal to inspection Palpation (GI): Soft to palpation Percussion: Yes normal to percussion Auscultation: normal bowel sounds Coding Level of Care Code Est Pt Level 4 (02692) Diagnoses Hypothyroidism E03.9 Hyperlipidemia E78.5 HTN (hypertension) I10 Additional Codes YIFAN-7 Assessment Billing - YIFAN-7 Assessment Tool: YIFAN-7 Assessment 45146 ([id number]) PHQ-9 - 64590 - PHQ-9 Billing: Yes ([id number]) Assessment & Plan Assessment & Plan (1) Hypothyroidism: Code(s): E03.9 - Hypothyroidism, unspecified Category: Medical Plan: Continue levothyroxine (2) Hyperlipidemia: Comment: Intolerant to atorvastatin myalgia Code(s): E78.5 - Hyperlipidemia, unspecified Category: Medical Plan: Continue rosuvastatin (3) HTN (hypertension): Code(s): I10 - Essential (primary) hypertension Category: Medical Plan: Continue metoprolol follow-up in 6 months with a fasting labs before Orders: Orders Comprehensive [place]. Panel Fast 6 Months E03.9 - Hypothyroidism, unspecified, E78.5 - Hyperlipidemia, unspecified, I10 - Essential (primary) hypertension Complete Blood Count Auto Diff 6 Months E03.9 - Hypothyroidism, unspecified, E78.5 - Hyperlipidemia, unspecified, I10 - Essential (primary) hypertension TSH reflex Free T4 6 Months E03.9 - Hypothyroidism, unspecified, E78.5 - Hyperlipidemia, unspecified, I10 - Essential (primary) hypertension UA w Microscopic 6 Months E03.9 - Hypothyroidism, unspecified, E78.5 - Hyperlipidemia, unspecified, I10 - Essential (primary) hypertension Lipid Panel 6 Months E03.9 - Hypothyroidism, unspecified, E78.5 - Hyperlipidemia, unspecified, I10 - Essential (primary) hypertension Vitamin D 25-OH Total 6 Months E03.9 - Hypothyroidism, unspecified, E78.5 - Hyperlipidemia, unspecified, I10 - Essential (primary) hypertension Medications: Refilled lorazepam 0.5 mg PO DAILY PRN 10 tabs 0RF anxiety levothyroxine 75 mcg PO DAILY 90 tabs 3RF metoprolol succinate ER 50 mg PO DAILY 90 tabs 3RF rosuvastatin 10 mg PO DAILY 90 tabs 3RF
--- OUTSIDE RECORDS SUMMARY | 2024-10-07 13:33 | XMS_ITS | Encounter Summary ---
Author Organization [facility] Address [address] [place] [address] Care Team Providers Care Tour Guide Name Role Phone Brii Ojeda DO Primary Care Pro vider Unavailable Hawa Hu MD Primary Care Provider Alexa wu Encounter Details Date Type Department Care Team Description 04/30/2020 Orders Only Adult Medicine [address] [address] Brii Ojeda DO Elevated TSH (Primary Dx) Social History Tobacco Use Types Packs/Day Years Used Date Smoking Tobacco: Former Smokeless Tobacco: Never Comments:quit 2002 Alcohol Use Standard Drinks/Week Comments No 0 (1 standard drink = 0.6 oz pur e alcohol) Alcohol Habits Answer Date Recorded How often do you have a drink containing alcohol ? Never 04/17/2020 How many drinks containing a lcohol do you have on a typical day when you are drinking? Not asked How often do you have six or more drinks on one occasion? Not asked Sex Assigned at Date Recorded Not on file COVID-19 Exposure Response Date Recorded In the last month, have you been in contact with someone who was confirmed or suspected to have Coronavirus / COVID-19? No / Unsure 04/29/2020 8:56 AM EST documented as of this encounter Plan of Treatment Not on file documented as of this encounter Results * (ABNORMAL) THYROID PROFILE W/TSH (05/24/2020 12:31 PM EST) TSH [facility] 16.64(H) 0.40 - 4.00 uIU/ml 05/24/2020 3:41 PM EST [facility] 05/24/2020 12:3 1 PM EST 05/24/2020 12:31 PM EST Brii Padilla DO LAB [facility] documented in this encounter Visit Diagnoses Diagnosis Elevated TSH- Primary Other abnormal blood chemistry documented in this encounter Care Teams Tour Guide Relationship Specialty Start Date End Date Brii Ojeda DO PCP - General Internal Medicine 02/16/20 09/03/21 Hawa Hu MD PCP - General Internal Medicine 09/04/21 documented as of this encounter
== END 2024-10-07 15:08 | disposition home or self-care (01) ==
LOC: HO.HMCC 13:25
PROVIDERS: PCP Internal Medicine; Visit Provider Internal Medicine
DX: E03.9 Hypothyroidism, unspecified (principal); E78.5 Hyperlipidemia, unspecified; I10 Essential (primary) hypertension

== ENCOUNTER → 2024-10-07 13:25 | Outpatient (BNVA) | payer BC, SELFPAY | PROVIDERS: PCP Internal Medicine; Visit Provider Internal Medicine | DX: I10 Essential (primary) hypertension (principal); E78.5 Hyperlipidemia, unspecified; E03.9 Hypothyroidism, unspecified; Z79.899 Other long term (current) drug therapy | CPT/HCPCS: 96127 ==

== ENCOUNTER 2025-04-09 08:03 | Outpatient (REF) | payer BC, SELFPAY ==
[2025-04-09 11:05] LABS: MANUAL DIFF FLAG NO
[2025-04-09 11:11] LABS: Appearance Urine Turbid; Glucose Urine UA Negative (Negative); PH 5.5 (5.0-9.0); Specific Gravity - Urine 1.020 (1.005-1.025); UMIC TRIGGER UA YES
[2025-04-09 11:14] LABS: Hematocrit 43.5 % (37.0-47.0); Hemoglobin 14.2 g/dl (12.0-16.0); Imm Gran Abs Auto 0.01 X10*3/uL (0.00-0.03); Imm Gran Pct Auto 0.2 % (0.0-0.4); Lymphocytes Absolute Auto 2.1 X10*3/uL (1.2-4.9); Mean Corpuscular HGB Conc 32.6 g/dl (31.0-35.0); Mean Corpuscular Hemoglobin 28.2 pg (27.0-33.0); Mean Corpuscular Volume 86.3 fL (80.0-98.0); NRBC Abs Auto 0.000 X10*3/uL (0.0-0.012); NRBC Pct Auto 0.0 /100WBC (0.0-0.2); Platelet Count 187 X10*3/uL (160-400); Red Blood Count 5.04 X10*6/uL (4.20-5.50); White Blood Count 4.5 X10*3/uL (4.8-10.8)
[2025-04-09 11:44] LABS: Alanine Aminotransferase 34 U/L (0-31); Albumin Level 4.6 g/dL (3.5-5.0); Alkaline Phosphatase 55 U/L (39-117); Anion Gap 12 (12-20); Aspartate Amino Transferase 35 U/L (5-31); Blood Urea Nitrogen 15 mg/dL (9-16); Calcium 9.4 mg/dL (8.4-10.2); Carbon Dioxide 28 mmol/L (22-29); Chloride 105 mmol/L (96-108); Cholesterol 153 mg/dL (<200); Estimated Glomerular Filt Rate > 60; HDL Cholesterol 50 mg/dL (>40); Potassium 4.8 mmol/L (3.3-5.1); Sodium 140 mmol/L (135-145); Total Protein 7.2 g/dL (6.5-8.0); Triglycerides 75 mg/dL (<150)
== END 2025-04-09 08:04 | disposition home or self-care (01) ==
LOC: HO.HMGCLDS 08:03
PROVIDERS: PCP Internal Medicine; Visit Provider Internal Medicine
DX: I10 Essential (primary) hypertension (principal); E03.9 Hypothyroidism, unspecified; E78.5 Hyperlipidemia, unspecified
CPT/HCPCS: 36415; 80053; 80061; 81001; 82306; 84443; 85025

== ENCOUNTER 2025-04-19 13:10 | Outpatient (AMB) | payer BC, SELFPAY ==
[2025-04-19 13:20] VITALS: BP 130/80; PULSE 71; RESP 16; TEMP 36.8; O2SAT 98; BMI 24.5
--- NOTE | 2025-04-19 13:20 | A.OFFPC_ITS ---
Vital Signs 04/19/25 13:20 Height 5 ft 2 in Weight 134 lb BMI 24.5 BP 130/80 Blood Pressure Location Lt brachial Position Sitting Respiration 16 Pulse 71 Pulse Source Pulse Oximeter Temp 98.3 F Temp Source Oral Pulse Oximetry (%) 98 Oxygen Delivery Method Room Air Intake Visit Reasons: PE Intake Note: Pt is here today for PE. Pt states that she has been having urinary pressure for couple of weeks. Allergies atorvastatin Adverse Reaction (Intermediate, Verified 04/19/25 13:25) myalgia Medication List - Last Reconciled 04/19/25 by Hawa Hu MD levothyroxine 75 mcg PO DAILY lorazepam 0.5 mg PO DAILY PRN metoprolol succinate ER 50 mg PO DAILY rosuvastatin 10 mg PO DAILY valacyclovir (Valtrex) 2,000 mg (2 x 1 gram) PO BID Tobacco use date assessed: 10/07/24 Dental Screening Dental Screen Date: 10/07/24 HPI PE HPI Details Pt presents for PE. Patient complains of a feeling of incomplete bladder emptying and frequent urination occasionally stress incontinence for the last few months. She denies dysuria abdominal or pelvic pain. Patient is established with a medical front desk specialist and is up-to-date with pelvic exam 2 months ago. [facility] Medical History Normal pelvic exam Hordeolum externum (stye) HTN (hypertension) Normal colonoscopy Annual physical exam Hyperlipidemia Mammogram normal Hypothyroidism Surgical History No pertinent past surgical history Family History Father Asthma Mother Hypertension Stroke Social History Housing: House Patient Tobacco Use Status: Former Tobacco user e-Cigarette/Vaping Use: Never Used service: No Current occupational status: employed Cognitive needs: No Hearing needs: No Vision needs: No Questionnaire Thrive Questionnaire Date Thrive assessed: 10/07/24 YIFAN-7 AMB Questionnaire YIFAN-7 Date YIFAN - 7 assessed: 10/07/24 Source: Developed by Drs. Boby Wang, Mecca Shaan Barlow and colleagues, with an educational carlos from [employer]. Review of Systems Const All systems reviewed & are unremarkable except as noted in HPI and below Eyes Reports no additional complaints ENT Reports no additional complaints Card Reports no additional complaints Resp Reports no additional complaints GI Reports no additional complaints Reports no additional complaints Physical exam (Primary Care) Vital Signs: Last Vital Signs Temp 98.3 F 04/19/25 13:20 Pulse 71 04/19/25 13:20 Resp 16 04/19/25 13:20 BP 130/80 04/19/25 13:20 Pulse Ox 98 04/19/25 13:20 Oxygen Delivery Method Room Air 04/19/25 13:20 BMI result Body Mass Index 24.5 Tobacco/Smoking Status: Tobacco use Status Tobacco use date assessed 10/07/24 04/19/25 13:24 Patient Tobacco Use Status Former Tobacco user 04/19/25 13:24 e-Cigarette/Vaping Use Never Used 04/19/25 13:24 Thrive Assessment: Date of Thrive Assessment Date Thrive assessed 10/07/24 04/19/25 13:24 Const General: no acute distress HENMT Head: Yes normal to inspection Eyes General: appearance normal, both eyes and all related structures Neck Neck: Yes supple Resp Effort & Inspection: normal respiratory effort Auscultation: clear to auscultation bilaterally Cardio Rhythm: regular rhythm Heart sounds: S1 normal heart sound present and S2 normal heart sound present GI Inspection: Yes normal to inspection Palpation (GI): Soft to palpation Percussion: Yes normal to percussion Auscultation: normal bowel sounds Coding Level of Care Code Est Pt Prev Care 40-64y(26835) Diagnoses Urinary incontinence R32 HTN (hypertension) I10 Hyperlipidemia E78.5 Hypothyroidism E03.9 Annual physical exam Z00.00 Assessment & Plan Assessment & Plan (1) Urinary incontinence: Code(s): R32 - Unspecified urinary incontinence Category: Medical Plan: Obtain bladder scan to evaluate for postvoid residual. Patient was advised to start kilos exercises for stress incontinence. She was advised to prevent constipation and emptying bladder on regular basis. If her symptoms persist she will be referred to urogynecology (2) HTN (hypertension): Code(s): I10 - Essential (primary) hypertension Category: Medical Plan: Continue metoprolol (3) Hyperlipidemia: Comment: Intolerant to atorvastatin myalgia Code(s): E78.5 - Hyperlipidemia, unspecified Category: Medical Plan: Continue statin (4) Hypothyroidism: Code(s): E03.9 - Hypothyroidism, unspecified Category: Medical Plan: Continue levothyroxine (5) Annual physical exam: Code(s): Z00.00 - Encounter for general adult medical examination without abnormal findings Category: Medical Plan: Well-balanced diet regular physical activity discussed with the patient. She will return in 1 year Orders: Orders US bladder Today R32 - Unspecified urinary incontinence Complete Blood Count Auto Diff 1 Year E78.5 - Hyperlipidemia, unspecified, I10 - Essential (primary) hypertension, Z00.00 - Encounter for general adult medical examination without abnormal findings TSH reflex Free T4 1 Year E78.5 - Hyperlipidemia, unspecified, I10 - Essential (primary) hypertension, Z00.00 - Encounter for general adult medical examination without abnormal findings UA w Microscopic 1 Year E78.5 - Hyperlipidemia, unspecified, I10 - Essential (primary) hypertension, Z00.00 - Encounter for general adult medical examination without abnormal findings Comprehensive [place]. Panel Fast 1 Year E78.5 - Hyperlipidemia, unspecified, I10 - Essential (primary) hypertension, Z00.00 - Encounter for general adult medical examination without abnormal findings Lipid Panel 1 Year E78.5 - Hyperlipidemia, unspecified, I10 - Essential (primary) hypertension, Z00.00 - Encounter for general adult medical examination without abnormal findings Vitamin D 25-OH Total 1 Year E78.5 - Hyperlipidemia, unspecified, I10 - Essential (primary) hypertension, Z00.00 - Encounter for general adult medical examination without abnormal findings
== END 2025-04-19 14:59 | disposition home or self-care (01) ==
LOC: HO.HMCC 13:11
PROVIDERS: PCP Internal Medicine; Visit Provider Internal Medicine
DX: Z00.00 Encounter for general adult medical examination without abnormal findings (principal); R32 Unspecified urinary incontinence; I10 Essential (primary) hypertension; E78.5 Hyperlipidemia, unspecified; E03.9 Hypothyroidism, unspecified